=== PATIENT | female | born 1945 | race Hispanic/Latino ===

== ENCOUNTER 2017-09-02 11:29 | Day surgery (SDC) | payer MEDICARE, OTHER ==
[~2017-09-02 11:29] MED LIST: IOPIDINE ONE; MYDRIACYL ONE; NEOFRIN ONE
[2017-09-02] MEDS ORDERED: NEOFRIN OD ONE (11:48)
[2017-09-02] MEDS ORDERED: IOPIDINE OD ONE ×2 (11:48→12:41)
[2017-09-02] MEDS ORDERED: MYDRIACYL OD ONE (11:48)
[2017-09-02 12:26] VITALS: BP 134/80
== END 2017-09-02 12:45 | disposition home or self-care (01) ==
LOC: OR 11:29
PROVIDERS: ATTEND Specialist
DX: E11.36 Type 2 diabetes mellitus with diabetic cataract (principal); H26.491 Other secondary cataract, right eye; I10 Essential (primary) hypertension; E78.00 Pure hypercholesterolemia, unspecified; K21.9 Gastro-esophageal reflux disease without esophagitis; M19.90 Unspecified osteoarthritis, unspecified site; Z90.710 Acquired absence of both cervix and uterus; Z90.49 Acquired absence of other specified parts of digestive tract; Z98.890 Other specified postprocedural states
CPT/HCPCS: 82962